=== PATIENT | female | born 1995 | race Caucasian/White ===

== ENCOUNTER 2017-11-25 23:27 | Emergency (ER) | payer OTHER ==
[2017-11-26] MEDS ORDERED: Ondansetron ODT 4 MG TAB ONE (00:31)
--- NOTE | 2017-11-26 07:37 | RAD ---
RIGHT FOOT 3 VIEWS: HISTORY: Right foot pain, injury. FINDINGS/IMPRESSION: No fracture or dislocation is identified. POS: [facility]
== END 2017-11-26 00:15 | disposition home or self-care (01) ==
LOC: SCSER 23:27
DX: S93.601A Unspecified sprain of right foot, initial encounter (principal); E27.40 Unspecified adrenocortical insufficiency; Z79.899 Other long term (current) drug therapy; W21.89XA Striking against or struck by other sports equipment, initial encounter; Y93.66 Activity, soccer
CPT/HCPCS: Q0162